=== PATIENT | male | born 1970 | race Two or more races ===

== ENCOUNTER 2016-11-21 16:43 | Emergency (ER) | payer MEDICAID ==
[~2016-11-21] VITALS: Ht 190.5 cm; Wt 94.8 kg
[2016-11-21] MEDS ORDERED: HYDR-3326 PO (16:59)
[2016-11-21] MEDS ORDERED: HYDROCODONE/APAP 10/325MG 1 EA TABLET ONE (17:46)
[2016-11-21] MEDS ORDERED: HYDROCODONE/APAP 10/325MG 1 EA TABLET PO ONE (18:00)
[2016-11-21 18:38] VITALS: BP 151/97
== END 2016-11-21 18:40 | disposition home or self-care (01) ==
LOC: ER 16:45
DX: S22.42XA Multiple fractures of ribs, left side, initial encounter for closed fracture (principal); R07.81 Pleurodynia; R05 Cough; I10 Essential (primary) hypertension; F17.210 Nicotine dependence, cigarettes, uncomplicated; V29.9XXA Motorcycle rider (driver) (passenger) injured in unspecified traffic accident, initial encounter; Y93.89 Activity, other specified; Y92.89 Other specified places as the place of occurrence of the external cause; Y99.9 Unspecified external cause status
CPT/HCPCS: 71020-TC; A4606; Z7610

== ENCOUNTER 2019-10-03 15:04 | Emergency (ER) | payer MEDICAID ==
[~2019-10-03] VITALS: Ht 188 cm; Wt 98.0 kg
[~2019-10-03 15:04] MED LIST: HYDR-3974 PO
[2019-10-03 15:43] LABS: BASOPHILS # (AUTO) 0.1 /CMM (0.0-0.2); BASOPHILS % (AUTO) 1.9 % (0.0-2.0); EOSINOPHILS % (AUTO) 1.4 % (0.0-6.0); HEMATOCRIT 48 % (39-51); HEMOGLOBIN 15.8 g/dL (13.5-17.5); LYMPHOCYTES # (AUTO) 1.2 /CMM (0.8-4.8); LYMPHOCYTES % (AUTO) 17.3 % (20.0-44.0); MEAN CORPUSCULAR HGB CONC 33 g/dl (31.0-36.0); MEAN CORPUSCULAR VOLUME 85 fL (80-96); MONOCYTES # (AUTO) 0.7 /CMM (0.1-1.30); MONOCYTES % (AUTO) 9.9 % (2.0-12.0); NEUTROPHILS # (AUTO) 4.7 /CMM (1.8-8.9); NEUTROPHILS % (AUTO) 69.5 % (43.0-81.0); PLATELET COUNT (AUTO) 205 /CMM (150-450); WHITE BLOOD COUNT (AUTO) 6.8 K/uL (4.3-11.0)
--- NOTE | 2019-10-03 15:47 | NUR ---
Patient came in to the ER c/o left arm and forearm numbeness 1.5 weeks. On room air, breathing evenly and unlabored. connected to the monitor and pulse. Kept comfortable, will continue to monitor accordingly.
[2019-10-03 15:52] LABS: CALCIUM, SERUM 8.9 mg/dL (8.5-10.1); CARBON DIOXIDE 27 mmol/L (21-32); CHLORIDE 103 mmol/L (98-107); CREATININE 0.8 mg/dL (0.6-1.3); GLUCOSE 191 mg/dL (74-106); POTASSIUM 4.3 mmol/L (3.5-5.1); SODIUM SERUM 138 mmol/L (136-145); UREA NITROGEN, BLOOD 12 mg/dL (7-18)
[2019-10-03 16:58] VITALS: BP 129/81
--- NOTE | 2019-10-03 16:59 | NUR ---
Patient discharged to home in stable condition. Written and verbal after care instructions given. Patient verbalizes understanding of instruction.IV removed. Catheter intact and site benign. Pressure and 4x4 applied to site. No bleeding noted.
== END 2019-10-03 16:59 | disposition home or self-care (01) ==
LOC: ER 15:04
DX: M54.12 Radiculopathy, cervical region (principal); R94.31 Abnormal electrocardiogram [ECG] [EKG]; I44.0 Atrioventricular block, first degree; I45.10 Unspecified right bundle-branch block; G89.29 Other chronic pain; M54.9 Dorsalgia, unspecified; F17.200 Nicotine dependence, unspecified, uncomplicated; Z98.890 Other specified postprocedural states; Z60.2 Problems related to living alone; Z79.899 Other long term (current) drug therapy
CPT/HCPCS: 36415; 71045-TC; 80048-TC; 84484-TC; 85025-TC

== ENCOUNTER 2021-02-06 13:20 | Emergency (ER) | payer BC, MEDICAID ==
[~2021-02-06] VITALS: Ht 188 cm; Wt 82.6 kg
--- NOTE | 2021-02-06 13:40 | NUR ---
The patient bibs for c/o right ring finger pain 8/10 pain scale. The patient is in ER bed #12. Alert and oriented x4. Denies SOB. Respiration regular and unlabored. Will continue to monitor the patient.
[2021-02-06] MEDS ORDERED: LIDOCAINE 1% INJ 50 ML MDV IJ ONE (13:48)
[2021-02-06 14:11] LABS: BASOPHILS # (AUTO) 0.1 /CMM (0.0-0.2); BASOPHILS % (AUTO) 0.8 % (0.0-2.0); EOSINOPHILS % (AUTO) 1.6 % (0.0-6.0); HEMATOCRIT 51 % (39-51); HEMOGLOBIN 16.7 g/dL (13.5-17.5); LYMPHOCYTES # (AUTO) 1.3 /CMM (0.8-4.8); LYMPHOCYTES % (AUTO) 18.8 % (20.0-44.0); MEAN CORPUSCULAR HGB CONC 33 g/dl (31.0-36.0); MEAN CORPUSCULAR VOLUME 88 fL (80-96); MONOCYTES # (AUTO) 0.9 /CMM (0.1-1.30); MONOCYTES % (AUTO) 13.3 % (2.0-12.0); NEUTROPHILS # (AUTO) 4.6 /CMM (1.8-8.9); NEUTROPHILS % (AUTO) 65.5 % (43.0-81.0); PLATELET COUNT (AUTO) 194 /CMM (150-450); WHITE BLOOD COUNT (AUTO) 7.1 K/uL (4.3-11.0)
[2021-02-06 14:25] LABS: ALANINE AMINOTRANSFERASE 33 U/L (12-78); ALBUMIN 3.4 g/dL (3.4-5.0); ALKALINE PHOSPHATASE 162 U/L (46-116); ASPARTATE AMINOTRANSFERASE 2 U/L (15-37); BILIRUBIN,DIRECT 0.1 mg/dL (0.0-0.2); BILIRUBIN,TOTAL 0.2 mg/dL (0.2-1.0); CALCIUM, SERUM 9.2 mg/dL (8.5-10.1); CARBON DIOXIDE 29 mmol/L (21-32); CHLORIDE 95 mmol/L (98-107); SODIUM SERUM 131 mmol/L (136-145); TOTAL PROTEIN, SERUM 7.2 g/dL (6.4-8.2); UREA NITROGEN, BLOOD 17 mg/dL (7-18)
[2021-02-06 14:27] LABS: GLUCOSE 591 mg/dL (74-106)
[2021-02-06] MEDS ORDERED: VANCOMYCIN 1 GM in IV D5W 250 ML IV ONE (14:30)
[2021-02-06] MEDS ORDERED: IV NS 0.9% 1,000 ML BAG IV ONE ×2 (14:30→16:00)
[2021-02-06] MEDS ORDERED: PIPERACILLIN /TAZOBACTAM 3.375 G in IV D5W 50 ML IV ONE (16:00)
[2021-02-06] MEDS ORDERED: INSULIN REGULAR, HUMAN 100 UNIT/ML 10 ML VIAL SQ ONE (16:00)
[2021-02-06] MEDS ORDERED: INSULIN REGULAR, HUMAN 100 UNIT/ML 10 ML VIAL ONE (16:13)
--- NOTE | 2021-02-06 16:31 | NUR ---
TRANSFER INFO: PT ACCEPTED AT [facility], BY DR FOUZIA EPSTEIN, ROOM 788, RN FOR REPORT , [facility] ETA [phone]
--- NOTE | 2021-02-06 16:34 | NUR ---
COVID SWAB DONE AND SENT TO THE LAB
--- NOTE | 2021-02-06 17:36 | NUR ---
received a call from the lab regarding covid 19 result, "negative". notified
--- NOTE | 2021-02-06 17:39 | NUR ---
fax number [phone]
--- NOTE | 2021-02-06 18:01 | NUR ---
REPORT GIVEN TO ABDIFATAH BEY FROM [facility].
--- NOTE | 2021-02-06 19:35 | NUR ---
Patient discharged to home in stable condition. Written and verbal after care instructions given. Patient verbalizes understanding of instruction. The patient left ER in stable condition via arranged ambulance.
[2021-02-06 19:36] VITALS: BP 142/95
== END 2021-02-06 19:36 | disposition short-term general hospital (02) ==
LOC: ER 13:30
DX: L03.011 Cellulitis of right finger (principal); R73.9 Hyperglycemia, unspecified; F17.200 Nicotine dependence, unspecified, uncomplicated; I45.2 Bifascicular block; G89.29 Other chronic pain; M54.9 Dorsalgia, unspecified; Z20.822 Contact with and (suspected) exposure to COVID-19
CPT/HCPCS: 10060; 36415; 80048; 80076; 82010; 82962 ×3; 83605 ×2; 84484; 85025; 87040 ×2; 87426; 93005; 96365; 96367; 96375; 99291; C9803; J1815; J2543; J3370; J3490; J7030 ×2; J7060